=== PATIENT | female | born 1965 | race Caucasian/White ===

== ENCOUNTER 2016-09-08 01:27 | Emergency (ER) | payer BC ==
[~2016-09-08] VITALS: Ht 165.1 cm; Wt 97.7 kg
[2016-09-08 01:32] VITALS: TEMP 36.5; Ht 165.1 cm; Wt 97.7 kg
[2016-09-08] MEDS ORDERED: IBUP-1050 PO (02:02)
[2016-09-08] MEDS ORDERED: NAPR1TAB9 PO (02:02)
[2016-09-08] MEDS ORDERED: LIDOCAINE HCL 2% VISC SOLN 20 ML UDC PO STA (02:03)
[2016-09-08] MEDS ORDERED: ALUMINUM/MAGNESIUM SUSP 30 ML UDC PO STA (02:03)
--- NOTE | 2016-09-08 02:05 | EMERGENCY ROOM VISIT NOTE ---
History Report prepared by Mary: Kyle Brandt Under the Supervision of: Dr. Magaly Cooley D.O. First contact with patient: 01:41 Chief Complaint: ABDOMINAL PAIN Stated Complaint: SHARP ABD PAIN,NAUSEA Nursing Triage Summary: Pt states she has had epigastric pain with belching that started last night and resolved during the day @ 0600 and returned tonight @ 2330. Pt took rolaids with no relief History of Present Illness The patient is a 50 year old female who presents to the Emergency Room with complaints of burning epigastrium abdominal pain that began two days ago. She rates her pain an 8/10 in severity. She states that the pain only occurs during the night, and is not effected by eating. She is also experiencing a lot of nausea. She denies any fevers, chills, vomiting, diarrhea, constipation, or urinary symptoms. She denies any past medical problems or current medications. Source of History: patient Onset: two days ago Position: abdomen (epigastrium) Symptom Intensity: 8/10 Quality: burning Timing: constant Associated Symptoms: + nausea, No fevers, No chills, No vomiting, No diarrhea, No urinary symptoms Review of Systems See HPI for pertinent positives & negatives. A total of 10 systems reviewed and were otherwise negative. Past Medical & Surgical Medical Problems: (1) No Known Active Medical Problems Family History Omitted secondary to the patient's age. Social History Smoking Status: Current Every Day Smoker Smokeless Tobacco Use: No Alcohol Use: none Drug Use: none Housing Status: lives with family Occupation Status: employed Current/Historical Medications Scheduled PRN Ibuprofen (Advil), 200-600 MG PO Q4H PRN for Pain Naproxen (Aleve), 220 MG PO DIRECTED PRN for Pain Allergies Coded Allergies: BEE STING (Verified Allergy, Intermediate, "SITE SEVERE SWELLING", 09/08/16) Molds and Smuts (Verified Allergy, Intermediate, ITCHY EYES, SNEEZING, CONGESTION, 09/08/16) POLLEN (Verified Allergy, Intermediate, ITCHY EYES, SNEEZING, CONGESTION, 09/08/16) Physical Exam Vital Signs Date Time Temp Pulse Resp B/P (MAP) Pulse Ox O2 Delivery O2 Flow Rate FiO2 09/08/16 04:20 71 20 147/87 98 09/08/16 03:39 71 20 141/102 98 Room Air 09/08/16 01:32 36.5 61 16 151/97 100 Room Air Physical Exam HEENT: Head - normocephalic and atraumatic Pupils are equal, round, and reactive to light. Extraocular eye muscles are intact, and sclera are anicteric. Nose - moist nasal mucosa without discharge. Mouth - moist buccal mucosa. Oropharynx is nonerythematous and there is no tonsillar exudate or edema noted. Neck: Supple; no JVD, nuchal rigidity, cervical lymphadenopathy. Heart: Regular rate and rhythm. There is a normal S1 and S2 with no murmurs, clicks, or gallops appreciated. Lungs: Clear to auscultation bilaterally with no wheezes, rales, or rhonchi. Abdomen: Soft, mild epigastrium tenderness to palpation, nondistended, with good bowel sounds. There are no palpable pulsatile masses or hepatosplenomegaly. There is no guarding, rigidity, or rebound noted. Extremities: No evidence of cyanosis, clubbing, or edema. There are easily palpable peripheral pulses. Skin: warm and dry with good turgor and no rashes. Medical Decision & Procedures Laboratory Results 09/08/16 02:35 09/08/16 02:35 Test 09/08/16 02:35 Red Blood Count 5.09 M/uL (4.2-5.4) Mean Corpuscular Volume 89.6 fL (80-100) Mean Corpuscular Hemoglobin 29.9 pg (25-34) Mean Corpuscular Hemoglobin Concent 33.3 g/dl (32-36) RDW Standard Deviation 44.0 fL (36.4-46.3) RDW Coefficient of Variation 13.3 % (11.5-14.5) Mean Platelet Volume 9.9 fL (7.4-10.4) Anion Gap 5.0 mmol/L (3-11) Est Creatinine Clear Calc Drug Dose 91.6 ml/min Estimated GFR () 92.6 Estimated GFR (Non- 79.9 BUN/Creatinine Ratio 17.0 (10-20) Calcium Level 8.6 mg/dl (8.5-10.1) Total Bilirubin 0.3 mg/dl (0.2-1) Direct Bilirubin mg/dl (0-0.2) Aspartate Amino Transf (AST/SGOT) U/L (15-37) Alanine Aminotransferase (ALT/SGPT) 23 U/L (12-78) Alkaline Phosphatase 95 U/L (45-117) Total Protein 6.8 gm/dl (6.4-8.2) Albumin 3.2 gm/dl (3.4-5.0) Lipase 175 U/L (73-393) Laboratory results per my review. Medications Administered Medications (Trade) Dose Ordered Sig/Tyrel Route Start Time Stop Time Status Last Admin Dose Admin Lidocaine HCl (Viscous Lidocaine 2% Soln) 10 ml NOW STAT PO 09/08/16 02:03 09/08/16 02:04 DC 09/08/16 02:21 10 ML Al Hydroxide/Mg Hydroxide (Maalox Susp) 30 ml NOW STAT PO 09/08/16 02:03 09/08/16 02:04 DC 09/08/16 02:21 30 ML Ketorolac Tromethamine (Toradol Inj) 60 mg NOW STAT IM 09/08/16 04:02 09/08/16 04:03 DC 09/08/16 04:14 60 MG Procedure Maalox Susp 30 ml PO Lidocaine HCl 10 ml PO Toradol Inj 60 mg IM ECG Indication: abdominal pain Rate (beats per minute): 55 Rhythm: sinus bradycardia Findings: no acute ischemic change, no ectopy ED Course 0141: Past medical records reviewed. The patient was evaluated in room B3B. A complete history and physical exam was performed. An IV lock was initiated and labs were drawn as above. A twelve-lead EKG was obtained as described above. 0203: Ordered Maalox Susp 30 ml PO, Lidocaine HCl 10 ml PO 0257: The patient did not have any relief after the GI Cocktail. 0400: After reexamination, the patient is still having the epigastric abdominal pain. She does not have any RUQ abdominal pain on re-exam. She states that it tickles. I will be giving her Toradol. I also spoke with her about her family history. She states that she has no family history of GI cancers or aortic dissections. She also does not have a personal history of high blood pressure. She also does not have a PCP, so we will be providing her with some to research. 0402: Ordered Toradol Inj 60 mg IM 0410: Upon reevaluation, the patient is resting. I discussed findings and results with her. She verbalized agreement of the treatment plan. She was discharged home. Medical Decision The patient is a 50 year old female who presents to the ED with abdominal pain. Differential diagnosis includes GERD, pancreatitis, cholecystitis, and ulcerative disease. I attest that I have personally reviewed the patient's current medication list. Patient was found to have an elevated blood pressure and was referred to their primary doctor for recheck and further treatment. Laboratory Results: No leukocytosis, normal H&H, normal lipase and LFTs, glucose 135, and normal renal function. The patient was noted to have an elevated blood pressure and slightly elevated blood sugar while here in the emergency department. These will both require follow-up through a new PCP. I've encouraged her to follow-up bland diet and return to the emergency department she develops worsening epigastric pain, vomiting or fever. The patient has no right upper quadrant abdominal pain on exam to suggest acute cholecystitis. Pancreatic enzymes were negative. EKG was unremarkable. Impression Primary Impression: Epigastric abdominal pain of unknown etiology Scribe Attestation The scribe's documentation has been prepared under my direction and personally reviewed by me in its entirety. I confirm that the note above accurately reflects all work, treatment, procedures, and medical decision making performed by me. Departure Information Dispostion Home / Self-Care Referrals No Doctor, Assigned (PCP) Forms Call Back Authorization, HOME CARE DOCUMENTATION FORM, IMPORTANT VISIT INFORMATION Patient Instructions ED Epigastric Pain [facility], Hypertension Control, My [facility] Additional Instructions Rest. Follow up with new PCP if epigastric pain persists and for BP evaluation Take a bland diet. Return to the ER for worsening abdominal pain, fever, or vomiting
[2016-09-08 02:47] LABS: HEMATOCRIT 45.6 % (37-47); MEAN CELL VOLUME 89.6 fL (80-100); MEAN CORPUSCULAR HEMOGLOBIN 29.9 pg (25-34); MEAN CORPUSCULAR HGB CONC 33.3 g/dl (32-36); MEAN PLATELET VOLUME 9.9 fL (7.4-10.4); PLATELET COUNT 212 K/uL (130-400); RED BLOOD COUNT 5.09 M/uL (4.2-5.4); WHITE BLOOD COUNT 8.76 K/uL (4.8-10.8)
[2016-09-08 03:24] LABS: ALKALINE PHOSPHATASE 95 U/L (45-117); ALT/SGPT 23 U/L (12-78); BLOOD UREA NITROGEN 14 mg/dl (7-18); CALCIUM 8.6 mg/dl (8.5-10.1); CARBON DIOXIDE 27 mmol/L (21-32); CHLORIDE 108 mmol/L (98-107); CREATININE 0.85 mg/dl (0.60-1.20); GLUCOSE 135 mg/dl (70-99); SODIUM 140 mmol/L (136-145)
[2016-09-08] MEDS ORDERED: KETOROLAC TROMETHAMINE 60 MG/2 ML VIAL IM STA (04:02)
[2016-09-08 04:20] VITALS: BP 147/87; PULSE 71; O2SAT 98
== END 2016-09-08 04:21 | disposition home or self-care (01) ==
LOC: C.EDB 01:28
DX: R10.13 Epigastric pain (principal); R11.0 Nausea; F17.210 Nicotine dependence, cigarettes, uncomplicated